=== PATIENT | female | born 2000 | race Caucasian/White ===

== ENCOUNTER 2022-07-07 16:54 | Emergency (ER) | payer OTHER, SELFPAY ==
--- NOTE | ~2022-07-07 | XR_ITS ---
EXAMINATION: XR wrist RT min 3V DATE: 07/07/2022 17:09 INDICATION: Right wrist pain. Fall from horse. TECHNIQUE: 4 views of right wrist were obtained. COMPARISON: None. FINDINGS: There is a comminuted fracture of distal radius with involvement of the distal articular watson rface. The main distal fracture fragment demonstrates impaction. Joint spaces are normal. IMPRESSION: 1. Comminuted fracture of distal radius. Reviewed, dictated and finalized at location A. ET OPERATOR
[2022-07-07 17:11] VITALS: BP 133/86; PULSE 67; RESP 16; TEMP 36.6; O2SAT 100
--- NOTE | 2022-07-07 17:12 | ED.UPPEXIN ---
HPI - Extremity Injury (Upper) General Chief Complaint: Extremity Injury, Upper Stated Complaint: INJURED R ARM Time Seen by Provider: 07/07/22 17:12 Source: patient Mode of arrival: ambulatory Limitations: no limitations History of Present Illness HPI narrative: patient is a 21-year-old female that presents with right wrist pain after fall from horse. Patient denies any loss of sensation or strength. Has taken Tylenol with moderate relief. Related Data Home Medications Medication Instructions Recorded Confirmed dextroamphetamine-amphetamine ER 20 mg PO DAILY 07/07/22 07/07/22 20 mg 24hr capsule,extend release Allergies Allergy/AdvReac Type Severity Reaction Status Date / Time Sulfa (Sulfonamide Allergy Unknown RASH Verified 07/07/22 17:15 Antibiotics) Review of Systems Review of Systems: CONSTITUTIONAL: Denies malaise, chills, sweats, or fever. EYES: Denies visual changes, redness, or discharge. ENT: Denies rhinorrhea, congestion, sinus pain, otalgia or sore throat. CARDIOVASCULAR: Denies chest pain, palpitations, or edema. RESPIRATORY: Denies cough or dyspnea. GASTROINTESTINAL: Denies abdominal pain, nausea, vomiting, diarrhea, bloody, or mucous stools. GENITOURINARY: Denies dysuria or hematuria. SKIN: Denies rash or itching. MUSCULOSKELETAL: Denies back pain. reports right wrist pain NEUROLOGIC: Denies numbness, weakness, or headache. PSYCHIATRIC: Denies anxiety or depression. All systems reviewed & are unremarkable except as noted in HPI and below PMFSH Comments At time of signature, agree with nursing past medical, surgical, social and family history. There is no relevant family history pertinent to the presenting complaint. Exam Narrative: GENERAL: Well-appearing, well-nourished, and in no acute distress. HEAD: Normocephalic, atraumatic. EYES: PERRLA, conjunctivae clear, and EOMI ENT: Nares clear Mucous membranes moist. NECK: Supple. No lymphadenopathy. CHEST: No respiratory distress. Clear to auscultation. No bony deformities, no asymmetry. Speaks in full sentences. HEART: Regular rate and rhythm. No murmur heard. Normal peripheral pulses. ABDOMEN: Soft, nontender, nondistended, normal active bowel sounds, no palpable masses. EXTREMITIES: pain precipitated decrease range of motion range of motion in the right wrist. No edema, erythema, or ecchymosis. Normal strength and sensation. SKIN: Warm, dry, no rash. NEURO: Alert and oriented x3. No focal deficits. Cranial nerves II through XII grossly intact PSYCH: Normal mood and affect Course Course Emergency Course: Patient is aware of diagnosis, understands and agrees to treatment plan. Anticipatory guidance given. Patient agrees to follow-up as directed and is aware of reasons to seek care at the emergency department. Portions of this record may have been created with voice recognition software Level of Care: Express Care Visit Vital Signs Vital signs: Reviewed Procedures Orthopedic Splinting/Casting Injury #1: Splinting/Casting Date: 07/07/22 Splinting/Casting Time: 17:30 Side: right Upper Extremity Injury Location: wrist OCL: short arm Pre-Procedure Neuro Vascular Exam: normal Post-Procedure Neuro Vascular Exam: normal Additional Comments: Applied by bmw service technician MDM - Extremity Injury (Upper) MDM Narrative Medical decision making narrative: Discharge instructions reviewed with patient, as well as provided in writing per nursing staff. The instructions also include specific and strict return/GO TO THE ER as well as f/u information. All questions have been answered, and the patient deny any further questions with discharge and discharge plan. Differential Diagnosis Differential diagnosis: Likely sprain and strain of wrist, fracture of wrist and fracture of hand Lab Data Attestation: I reviewed the patient's lab results. Discharge Plan Discharge Clinical Impression:
== END 2022-07-07 17:38 | disposition home or self-care (01) ==
PROVIDERS: Emergency Provider Nurse Practitioner Family
DX: S52.501A Unspecified fracture of the lower end of right radius, initial encounter for closed fracture (principal); V80.010A Animal-rider injured by fall from or being thrown from horse in noncollision accident, initial encounter
CPT/HCPCS: 29125; 73110; 99204; A4565; G0463

== ENCOUNTER 2024-12-12 20:07 | Emergency (ER) | payer OTHER, SELFPAY ==
--- NOTE | ~2024-12-12 | XR_ITS ---
HISTORY: horse stepped on wrist COMPARISON: None TECHNIQUE: 3 views of the left hand were performed. FINDINGS: No acute fracture is identified. The joint spaces are preserved. The carpal arcs are intact. Mild radiocarpal joint space narrowing with trace sclerosis of the distal radius is present. Bone mineralization is unremarkable. No significant soft tissue swelling. No radiopaque foreign body is identified. IMPRESSION: No acute fracture or dislocation within the left hand, as detailed above. Reviewed, dictated and finalized at location A.
--- NOTE | ~2024-12-12 | XR_ITS ---
HISTORY: horse stepped on wrist COMPARISON: None TECHNIQUE: 3 views of the left wrist were performed. FINDINGS: No acute fracture is identified. The carpal arcs are intact. Mild radiocarpal joint space narrowing with trace sclerosis of the distal radius is present. The remaining visualized joint spaces are otherwise preserved. Bone mineralization is age-appropriate. No significant soft tissue swelling is noted. No radiopaque foreign body is identified. IMPRESSION: No acute fracture or dislocation, as detailed above. Reviewed, dictated and finalized at location A.
--- NOTE | ~2024-12-12 | XR_ITS ---
HISTORY: horse stepped on wrist COMPARISON: None TECHNIQUE: 2 views of the left forearm were performed FINDINGS: No acute or subacute fracture. Joint spaces are preserved and alignment is maintained. Soft tissues are unremarkable without foreign body or significant calcification. Age-appropriate mineralization. IMPRESSION: No acute fracture within the left forearm, as detailed above. Reviewed, dictated and finalized at location A.
--- OUTSIDE RECORDS SUMMARY | 2024-12-12 20:09 | XMS_ITS | Clinical Summary ---
Author Organization [facility] Address [address] [place] [address] Care Team Providers Care Grill Chef Name Role Phone Shiva Card MD Primary Care Provider Source Comments [facility],non-owned Affiliates and Associated Physician Practices is amultiple site organization consisting of ambulatory clinics and hospital sitesin [place], [place], [place] and [place]. This disclosure is being madepursuant to the Care Everywhere program and may not contain all information available regarding this patient. 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 Gender Identity Not on file Sexual Orientation Not on file Plan of Treatment Health Maintenance Due Date Last Done Comments HIV SCREENING 2016 HPV VACCINE (1 - 3-dose series) 2016 CHLAMYDIA/GONORRHEA SCREENING 2017 MENINGOCOCCAL (Group B) VACC INE SHARED DECISION-MAKING (1 of 2 - Standard) 2017 HEPATITIS C SCREENING 08/28/2019 DTAP/TDAP/TD VACCINES (1 - Tdap) 2020 HEPATITIS B VACCINE (1 of 3 - 19+ 3-dose series) 2020 COVID-19 VACCINE (1 - 2023-2 5 season) 2024 DEPRESSION SCREENING 05/09/2024 INFLUENZA VACCINE (#1) 2025 ZOSTER VACCINE (1 of 2) 09/02/2051 HIB VACCINE Aged Out No longer eligi ble based on patient's age to complete this topic MENINGOCOCCAL GROUPS A/C/Y/W VACCINE Aged Out No longer eligible b ased on patient's age to complete this topic PNEUMOCOCCAL VACCINE Aged Out No long er eligible based on patient's age to complete this topic Insurance [facility] Care Teams Grill Chef Relationship Specialty Start Date End Date Shiva Card MD [address] [place] [address] PCP - General Pediatrics 04/28/18
--- OUTSIDE RECORDS SUMMARY | 2024-12-12 20:09 | XMS_ITS | Clinical Summary ---
Author Organization [facility] Address [address] [place] [id number] Care Team Providers Care Clinical Education Coordinator Name Role Phone Shiva Card MD Primary Care Provider [phone]- [phone] Allergies Active Allergy Reactions Criticality Noted Date Comments Sulfa (Sulfonamide Antibiotics) Anaphylaxis High Medications * This document contains information received from the source organization and may not represent a complete record from that organization. DULoxetine DR (CYMBALTA) 20 mg capsule Take 1 capsule (20 mg total) by mouth daily 30 capsule 3 2 Active Additional Information Patient not taking.Reported on 07/14/2022 dextroamphetami ne-amphetamine XR (ADDERALL XR) 20 mg 24 hr capsule Take 20 mg by mouth daily 3 Active escitalopram (LEXAPRO) 10 mg tablet 0 Active Active Problems Problem Noted Date Diagnosed Date Depression 11/04/2021 PTSD (post-traumatic stress disorder) 11/04/2021 Scar conditions and fibrosis of skin 05/22/2019 Closed fracture of distal radius and ulna 2010 Immunizations Immunization Administration Dates Next Due Tdap 07/04/2024 Medical History Medical History Date Comments Anxiety Social History Tobacco Use Types Packs/Day Years Used Date Smoking Tobacco: Never Tobacco Cessation:Counseling Given: Not Answered Alcohol Use Standard Drinks/Week Comments No 0 (1 standard drink = 0.6 oz pur e alcohol) Comments No Sex and Gender Information Value Date Recorded Sex Assigned at Not on file 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 Gender Identity Female 12/29/2019 11:16 AM CDT Sexual Orientation Straight 12/29/2019 11 :16 AM CDT Obstetrics History Last Filed Vital Signs Vital Sign Reading Time Taken Comments Blood Pressure 119/81 07/24/2024 8:53 AM CDT Pulse 75 07/24/2024 8:53 AM CDT Temperature 37.2 C (98.9 F) 12/30/2019 4:21 PM CDT Respiratory Rate 20 12/30/2019 4:21 PM CDT Oxygen Saturation 99% 07/24/2024 8:53 AM CDT Inhaled Oxygen Concentration - - Weight 74.6 kg (164 lb 6.6 oz) 07/24/2024 8:53 A M CDT Height 175.3 cm (5' 9) 07/24/2024 8:53 AM CDT Body Mass Index 24.28 07/24/2024 8:53 AM CDT Plan of Treatment Health Maintenance Due Date Last Done Comments Cervical Cancer Screening 2001 Depression Screening 2001 Hepatitis C Screening 2001 Varicella Vaccines (1 of 2 - 13+ 2-dose series) 2014 HPV Vaccines (1 - 3-dose series) 2016 Meningococcal B Vaccine (1 of 2 - Standard) 2017 Regular Well Visit/Exam 18-64 09/02/2019 Covid-19 Vaccine ( season) 2024 11/20/2021, 05/11/2021, 10/20/2020, Additional history exists Influenza Vaccine (#1) 2025 DTaP/Tdap/Td Vaccine (2 - Td or Tdap) 07/04/2034 07/04/2024 Hepatitis B Screening Completed 2001 Pneumococcal vaccine <65 Aged Out No longer eligible based on patient's age to complete this topic Insurance [employer] Care Teams Clinical Education Coordinator Relationship Specialty Start Date End Date Shiva Card MD PCP - General Pediatrics 04/18/18
[2024-12-12 20:38] VITALS: BP 158/96; PULSE 97; RESP 16; TEMP 36.4; O2SAT 100
[2024-12-12] MEDS: HYDROcodone/acetaminophen (*CRX) 5-325 MG TABLET 1 TAB PO (21:27)
--- NOTE | 2024-12-12 21:38 | ED.UPPEXIN ---
HPI - Extremity Injury (Upper) General Chief Complaint: Extremity Injury, Upper Stated Complaint: possible left broken arm / horse back riding Time Seen by Provider: 12/12/24 20:52 Source: patient and family (Twin sister) Mode of arrival: ambulatory Limitations: no limitations History of Present Illness HPI narrative: Soqgk-iyyl-cseseser female presents with concern for left wrist and hand pain concerning for broken extremity. The course tripped and she accidentally fell off and after that the horse was getting up and stepped on her left wrist. She was wearing her helmet at the time but did not strike her head. In addition to the pain in her upper extremity she had initially complained of thoracic back pain but states this is not an issue any longer. 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 She had not taken any medications prior to arrival. She denies being short of breath. She declined chest imaging. No previous injury to this extremity although she has fractured the right twice. Related Data Home Medications ?Medication ?Instructions ?Recorded ?Confirmed ?Last Taken ?Type dextroamphetamine-amphetamine ER 20 mg PO DAILY 07/07/22 07/07/22 Unknown History 20 mg 24hr capsule,extend release Allergies Allergy/AdvReac Type Severity Reaction Status Date / Time Sulfa (Sulfonamide Allergy Unknown RASH Verified 12/12/24 21:27 Antibiotics) [facility] Past Medical History Medical History Right hand dominant Family History Family History Sibling Twin Exam Narrative: GENERAL: Well-appearing, well-nourished, in mild acute distress. HEAD: Normocephalic, atraumatic. EYES: Non injected, non icteric ENT: Nares clear, no rhinorrhea or epistaxis. Gross auditory acuity intact. NECK: Supple. No meningismus. CHEST: Speaking in full sentences. No respiratory distress. Lungs clear to auscultation bilaterally without wheezes or crackles, not diminished. HEART: Regular rate and rhythm. Strong 2+ radial pulse. Delayed capillary refill (assessed at finger pads due to false nails) but hand cold given application of ice pack. ABDOMEN: Soft, nondistended. EXTREMITIES: She has erythema throughout the dorsum of the left hand overlying the some particularly at the CP. Edema but Compartments soft. Patient is able to perform some range of motion at the left thumb as well as mild flexion extension at the wrist. Patient is able to perform flexion extension of digits 2 through 5 on the left. Snuffbox tenderness on the left. SKIN: Warm, dry. Patient has abrasions on digits of hand. Scattered ecchymosis. NEURO: No focal deficits. Alert and oriented. Answering questions. Following commands. Normal speech without aphasia or dysarthria. Sensation intact throughout hand/wrist/digits. PSYCH: Normal mood and affect. Course Vital Signs Vital signs: Vital Signs Temperature 97.6 F 12/12/24 20:38 Pulse Rate 97 12/12/24 20:38 Respiratory Rate 16 12/12/24 20:38 Blood Pressure 158/96 H 12/12/24 20:38 Pulse Oximetry 100 12/12/24 20:38 Oxygen Delivery Room Air 12/12/24 20:38 Temperature 97.6 F 12/12/24 20:38 Pulse Rate 97 12/12/24 20:38 Respiratory Rate 16 12/12/24 20:38 Blood Pressure 158/96 H 12/12/24 20:38 Pulse Oximetry 100 12/12/24 20:38 Oxygen Delivery Room Air 12/12/24 20:38 MDM - Extremity Injury (Upper) MDM Narrative Medical decision making narrative: 24-year-old mrvdc-kidy-ifdnzsas female presents with concern for injury to her left arm/wrist after she fell while riding horseback and then the horse subsequently stepped on her left upper extremity. In the emergency department she is afebrile vital signs notable for hypertension. The patient has tenderness over the radial aspect of the wrist with minimal swelling but no deformity. They demonstrated a concerning amount of snuffbox tenderness to palpation of their their hand. She also has pain with ulnar deviation at the wrist. They are otherwise neurovascularly intact. Pain medication administered. X-rays obtained and negative without obvious fracture or dislocation. However, due to concern for presumed occult scaphoid fracture and potential complication of nonunion avascular necrosis if not immobilized early, the patient was placed in a short arm thumb spica splint and instructed to follow up Orthopedic outpatient for repeat hand exam and radiography in 10-14 days. Discussed this concern with the patient and emphasized the importance of keeping the hand splinted and obtaining appropriate follow up. Also discussed this with Dr. Gaviria is consulted and confirms and is in agreement. Patient discharged with prescriptions for aozu-ads-jycnojj medications as well as opiate/narcotic medications for breakthrough pain. I did reassess after splint was applied; able to move fingers which are well perfusing. 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 I did offer that we could make a disc of her images to take but she declined. Differential Diagnosis Differential diagnosis: Likely sprain and strain of wrist, fracture of wrist, finger sprain, dislocation of finger, Colles' fracture and fracture of hand Imaging Data Attestation: I personally reviewed and interpreted this imaging study as follows: My impression: Negative for acute process on my independent interpretation of all images Radiologist's impression: Impressions Forearm X-Ray 12/12/24 21:48 IMPRESSION: No acute fracture within the left forearm, as detailed above. Hand X-Ray 12/12/24 21:50 IMPRESSION: No acute fracture or dislocation within the left hand, as detailed above. Wrist X-Ray 12/12/24 21:52 IMPRESSION: No acute fracture or dislocation, as detailed above. Discharge Plan Discharge Clinical Impression: Injury while horseback riding, Sprain and strain of wrist Patient Disposition: Home Condition: Stable Instructions: Antibiotic Form, Wrist Injury (ED), Narcotic Safety (ED), Splint Care (ED), Scaphoid Fracture (ED), Wrist Sprain (ED) Additional Instructions: As we discussed, there were no broken bones/fracture or dislocation on your images. However, due to the concern for presumed occult scaphoid fracture and potential complication if not immobilized early, you are being placed in a splint. You are to follow-up with orthopedic surgery for repeat hand exam and imaging. Call in the morning to schedule this appointment. Dr. Gaviria was already notified and in agreement. Acetaminophen/Tylenol (maximum 4000 mg per day) is safe to take with NSAIDs (ibuprofen/Motrin) for pain relief. For breakthrough pain, a short course of opiate/narcotic medications being prescribed. Patient Language: Portuguese Prescriptions: New ibuprofen 600 mg tablet 600 mg PO TID PRN (Reason: pain) Qty: 30 0RF acetaminophen 500 mg capsule 1,000 mg PO Q6H PRN (Reason: pain) Qty: 30 0RF oxycodone 5 mg tablet 5 mg PO Q8H PRN (Reason: pain) Qty: 7 0RF No Action dextroamphetamine-amphetamine 20 mg capsule,extended release 24hr 20 mg PO DAILY Follow-up/Referrals: PHYSICIAN NOT ON STAFF,NONSTAFF [Primary Care Provider] - Roderick Gaviria MD [Physician] - Stand Alone Forms: Work/School Release IP Time of Disposition: 22:19
--- OUTSIDE RECORDS SUMMARY | 2024-12-12 21:39 | XMS_ITS | Clinical Summary ---
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
--- OUTSIDE RECORDS SUMMARY | 2024-12-12 21:39 | XMS_ITS | Clinical Summary ---
Author Organization [facility] Address [address] [place] [address] Care Team Providers Care Molder Operator Name Role Phone Shiva Card MD Primary Care Provider Source Comments [facility],non-owned Affiliates and Associated Physician Practices is amultiple site organization consisting of ambulatory clinics and hospital sitesin [place], [place], [place] and [place]. This disclosure is being madepursuant to the Care Everywhere program and may not contain all information available regarding this patient. 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
[2024-12-12] MEDS: KETOROLAC 30 MG/ML VIAL (*BKC) 15 MG IM (22:23)
--- NOTE | 2025-01-09 06:24 | PC.NURSE ---
LATE ENTRY This note is being entered to document information to the patient's record. The following information was omitted on 12/12/24, by Fiona Sandhu. Splint placed on left wrist/hand per instruction by Dr. George. Pt was placed in volar and thumb spica in combination d/t point tenderness and mechanism of injury despite no obvious fracture on xrays.
== END 2024-12-12 22:50 | disposition home or self-care (01) ==
PROVIDERS: Emergency Provider Student in an Organized Health Care Education/Training Program
DX: S63.502A Unspecified sprain of left wrist, initial encounter (principal); S66.912A Strain of unspecified muscle, fascia and tendon at wrist and hand level, left hand, initial encounter; W55.12XA Struck by horse, initial encounter; V80.010A Animal-rider injured by fall from or being thrown from horse in noncollision accident, initial encounter; Y93.52 Activity, horseback riding
CPT/HCPCS: 29125; 73090; 73110; 73130; 96372; 99284; A9270; J1885